=== PATIENT | female | born 1960 | race Two or more races ===

== ENCOUNTER 2020-02-29 07:25 | Day surgery (SDC) | payer BC ==
[2020-02-29] VITALS (9 sets, daily range): BP systolic 127–144; BP diastolic 67–78
[~2020-02-29] VITALS: Ht 165.1 cm; Wt 72.6 kg
[~2020-02-29 07:25] MED LIST: GABAPENTIN100 MG ORAL; HUMALOG100 UNIT/4 SUBQ; Proparacaine 0.5% Opth Soln 15ml RIGHT EYE ONE; SYNTHROID100 MCG ORAL; TRAZODONE HCL50 MG ORAL
[2020-02-29] MEDS ORDERED: Indocyanine Green 25mg Inj INJ ONE (07:30)
--- NOTE | 2020-02-29 07:50 | Pre-Procedure Note/Attestation ---
Pre-Procedure Note/Attestation Complete Prior to Procedure Planned Procedure: right Procedure Narrative: VH OD plan for PPV Indications for Procedure Pre-Operative Diagnosis: VH OD plan for PPV Attestation I attest that I discussed the nature of the procedure; its benefits; risks and complications; and alternatives (and the risks and benefits of such alternatives ), prior to the procedure, with the patient (or the patient's legal risk control field representative). I attest that, if there was a reasonable possibility of needing a blood transfusion, the patient (or the patient's legal risk control field representative) was given the [facility] standardized written summary, pursuant to the [place] Blood Safety Act ([place] Health and Safety Code # 1645, as amended). I attest that I re-evaluated the patient just prior to the surgery and that there has been no change in the patient's H&P, except as documented below: Pj Fallon M.D., MD Feb 29, 2020 07:50
--- NOTE | 2020-02-29 07:50 | Operative Note - PDOC ---
Operative Note Operative Note Pre-op Diagnosis: VH OD plan for PPV Procedure: Pars plana vitrectomy, TRD repair, endolaser, air-fluid exchange, infusion of SF6 (16%), RIGHT EYE Post-op Diagnosis: Proliferative diabetic retinopathy with non-clearing vitreous hemorrhage, superonasal tractional detachment encroaching the macula, RIGHT EYE Surgeon: Leeanne Anesthesia: general Specimen: none Complications: none Condition: stable Estimated Blood Loss: minimal Drains: none Implant(s) used?: No Indications for Procedure The patient has vision loss due to proliferative diabetic retinopathy and vitreous hemorrhage and presents today for surgery. After review of the risks , benefits, alternative and the patient signed informed consent into the medical chart. Description of Procedure Procedure performed: The patient was met in the pre-op area where informed consent was reviewed. The operative eye was verified, marked and dilated. The patient was transferred to the operative suite, where cardiopulmonary monitoring was established and RB anesthetic was administered without complications. The eye was prepped and draped in sterile ophthalmic fashion. Under microscope visualization the 23 gauge infusion line was placed inferotemporally. After visualization of the tip in the vitreous cavity, the infusion line was turned on. The superotemporal and superonasal cannulas were placed. Under BIOM visualization, peripheral and core vitrectomy was performed. As the vitreous was cleared, view of the posterior pole was improved. Inspection of the posterior pole revealed tractional retinal detachment involving the ST macula; the tractional bands were trimmed and hemostasis was achieved. Laser was applied to surround the area of detachment. Further peripheral vitrectomy was performed to allow additional laser treatment. No stretch holes or iatrogenic breaks were noted. Endolaser was applied to perform complete PRP. Air-fluid exchange was performed and SF6 was infused into the eye. The cannulas were removed. The eye maintained normal intraocular pressure. Subconjunctival vancomycin and dexamethasone were administered. The lid speculum was removed. The eye was cleaned of prep and drape. Atropine drop and Maxitrol ointment was applied. A pressure patch was placed. The patient was turned over to the anesthesia team and transferred in stable condition to the PACU. Pj Fallon M.D., MD Feb 29, 2020 07:50
[2020-02-29] MEDS: Phenylephrine 2.5% Op 2ml Soln RIGHT EYE SCH ×3 (08:26→08:53)
[2020-02-29] MEDS: Cyclopentolate 1% Opth Sol 2ml RIGHT EYE SCH ×3 (08:27→08:53)
[2020-02-29] MEDS: Tropicamide 1% Opth 15ml Soln RIGHT EYE SCH ×3 (08:27→08:53)
[2020-02-29] MEDS ORDERED: fentaNYL 100 mcg/2 mL IV ONE (08:29)
[2020-02-29] MEDS ORDERED: Midazolam 2mg/2ml Inj ONE (08:29)
[2020-02-29] MEDS ORDERED: Lidocaine 1% MPF 10mg/ml 5ml ONE (09:19)
[2020-02-29] MEDS ORDERED: Sterile Water Irrig 1000ml IRRIG ONE (09:30)
[2020-02-29] MEDS ORDERED: LR 1000ml ONE (09:30)
[2020-02-29] MEDS ORDERED: NS Irrig 1000ml ONE (09:30)
[2020-02-29] MEDS ORDERED: LR 1000ml 1,000 ML IVLG SCH (09:54)
--- NOTE | 2020-02-29 09:54 | Anethesia Preoperative Eval ---
Anesthesia Pre-op PMH/ROS General Date of Evaluation: Feb 29, 2020 Time of Evaluation: 09:14 Anesthesiologist: Jairo ASA Score: ASA 3 Mallampati Score Class I : Soft palate, uvula, fauces, pillars visible Class II: Soft palate, uvula, fauces visible Class III: Soft palate, base of uvula visible Class IV: Only hard plate visible Mallampati Classification: Class II Surgeon: Jigar Diagnosis: R eye vitreous hemorhage Surgical Procedure: R eye PPV Anesthesia History: PONV Family History: no anesthesia problems Allergies: Coded Allergies: PENICILLINS (Verified Allergy, Severe, rash ; "can't breath", 02/28/20) Olives (Verified Adverse Reaction, Intermediate, stomach problem, 02/28/20) Medications: see eMAR Patient NPO?: Yes Past Medical History Cardiovascular: Denies: HTN, CAD, MT, valve dz, arrhythmia, other Pulmonary: Denies: asthma, COPD, RANJAN, other Gastrointestinal/Genitourinary: Reports: GERD Neurologic/Psychiatric: Reports: depression/anxiety, other - neuropathy; Denies: dementia, CVA, TIA Endocrine: Reports: DM - Type 1 on insulin pump; Denies: hypothyroidism, steroids, other HEENT: Denies: cataract (L), cataract (R), glaucoma, QUECHAN (L), QUECHAN (R), other Musculoskeletal/Integumentary: Reports: OA; Denies: RA, DJD, DDD, edema, other PMH Narrative: as above PSxH Narrative: see H&P Anesthesia Pre-op Phys. Exam Physician Exam Last Vital Signs Date Time Temp Pulse Resp B/P (MAP) Pulse Ox O2 Delivery O2 Flow Rate FiO2 02/29/20 08:36 Room Air 02/29/20 08:20 97.0 75 20 138/76 98 Constitutional: NAD Neurologic: CN 2-12 intact Cardiovascular: RRR, no M/R/G Respiratory: CTA Gastrointestinal: S/NT/ND Airway Exam Mallampati Score: Class II MO: limited Neck: stiff ROM: limited Teeth: intact Dentures: no upper, no lower Anesthesia Pre-op A/P Labs Chemistry Test 02/29/20 08:49 POC Whole Blood Glucose 202 MG/DL (74-106) H Studies Pre-op Studies: EKG - NSR Risk Assessment & Plan Assessment: ASA 3 Plan: Ga with LMA patient request Status Change Before Surgery: No Pre-Antibiotics Drug: none Vince Gill MD Feb 29, 2020 09:54
[2020-02-29] MEDS ORDERED: Metoclopramide 10mg/2ml Inj IVP PRN (10:00)
[2020-02-29] MEDS ORDERED: fentaNYL 100 mcg/2 mL IV PRN (10:00)
--- NOTE | 2020-02-29 10:27 | Immediate Post-Op Evaluation ---
Immediate Post-Op Evalulation Immediate Post-Op Evalulation Procedure: R eye PPV membraine peel, laser treatment, gas injection Date of Evaluation: Feb 29, 2020 Time of Evaluation: 10:25 IV Fluids: 400 Blood Products: none` Estimated Blood Loss: min Urinary Output: none Blood Pressure Systolic: 144 Blood Pressure Diastolic: 72 Pulse Rate: 74 Respiratory Rate: 18 O2 Sat by Pulse Oximetry: 99 Temperature (Fahrenheit): 97.6 Pain Score (1-10): 1 Nausea: No Vomiting: No Complications none Patient Status: reacts, patent, none Hydration Status: adequate Vince Gill MD Feb 29, 2020 10:27
[2020-02-29] MEDS ORDERED: BSS 15ml BTL ONE (10:34)
[2020-02-29] MEDS ORDERED: BSS 500ml btl ONE (10:34)
[2020-02-29] MEDS ORDERED: Lidocaine 2% MPF 5ml Vial INJ ONE (10:34)
[2020-02-29] MEDS ORDERED: Povidone-Iodine 5% opth solution ONE (10:34)
[2020-02-29] MEDS ORDERED: Maxitrol Opth Oint 3.5gm ONE (10:34)
[2020-02-29] MEDS ORDERED: Tetracaine 0.5% Opth 4ml Soln ONE (10:34)
[2020-02-29] MEDS ORDERED: Sodium Hyaluronate 10 mg/ml 0.85ml ONE (10:34)
[2020-02-29] MEDS ORDERED: Kenalog-40 1ml Vial ONE (10:34)
[2020-02-29] MEDS ORDERED: prednisoLONE acetate 1% Opth Susp 1ml ONE (10:34)
[2020-02-29] MEDS ORDERED: Bupivacaine 0.75% 30ml vial INJ ONE (10:34)
--- NOTE | 2020-02-29 11:41 | 48 Hour Post Anesthesia Eval ---
Post Anesthesia Evaluation Procedure: R eye PPV membraine peel, laser treatment, gas injection Date of Evaluation: Feb 29, 2020 Time of Evaluation: 11:40 Blood Pressure Systolic: 127 0: 72 Pulse Rate: 68 Respiratory Rate: 18 Temperature (Fahrenheit): 97.6 O2 Sat by Pulse Oximetry: 98 Airway: patent Nausea: No Vomiting: No Pain Intensity: 1 Hydration Status: adequate Cardiopulmonary Status: stable Mental Status/LOC: patient returned to baseline Follow-up Care/Observations: n/a Post-Anesthesia Complications: none Follow-up care needed: ready to discharge Vince Gill MD Feb 29, 2020 11:41
== END 2020-02-29 13:10 | disposition home or self-care (01) ==
LOC: SUR 07:25
DX: E10.352 Type 1 diabetes mellitus with proliferative diabetic retinopathy with traction retinal detachment involving the macula (principal); Z96.41 Presence of insulin pump (external) (internal); K21.9 Gastro-esophageal reflux disease without esophagitis; M19.90 Unspecified osteoarthritis, unspecified site; Z88.0 Allergy status to penicillin
CPT/HCPCS: 67039; 67227; 82962; 94003; J1100; J2250; J2405; J2704; J3010; J3301; J3370; J3490; J7120; U0002; 94150